=== PATIENT | male | born 1950 | race Asian ===

== ENCOUNTER 2025-04-26 10:10 | Day surgery (SDC) | payer OTHER, SELFPAY ==
[2025-04-19 11:05] LABS: Hematocrit 42.5 % (39.0-52.0); Hemoglobin 14.4 g/dL (13.0-18.0); Mean Corp Hgb Conc. 33.9 g/dL (33.0-37.0); Mean Corpuscular Volume 93.6 fL (80.0-94.0); Nucleated Red Blood Cells % 0 % (-); Platelet Count 195 10^3/uL (130-400); Red Cell Dist. Width 13.5 % (11.5-14.5)
[2025-04-19 11:49] LABS: ALT (SGPT) 24 U/L (0-50); AST (SGOT) 23 U/L (17-59); Albumin 4.5 g/dl (3.5-5.0); Alkaline Phosphatase 89 U/L (38-126); Blood Urea Nitrogen 24 mg/dl (9-20); Calcium 9.2 mg/dl (8.4-10.2); Carbon Dioxide 27 mmol/L (22-30); Chloride 108 mmol/L (98-107); Glucose 101 mg/dl (70-99); Magnesium 2.2 mg/dl (1.6-2.3); Potassium 4.2 mmol/L (3.5-5.1); Sodium 143 mmol/L (135-145); Total Protein 7.5 g/dl (6.3-8.2); eGFR > 60.00
[2025-04-19 13:35] VITALS: BMI 28.3
[2025-04-26 10:42] VITALS: BMI 27.5
[2025-04-26 10:57] VITALS: BP 174/74
[2025-04-26 11:11] VITALS: BP 165/84
--- NOTE | 2025-04-26 12:22 | W.PN.UPDATE ---
Update Note
Progress Note Update
The patient ate a full breakfast this morning including eggs toast yogurt and fruit at approximately 9 AM. As this is an elective implant we will offer him first available implant date on another day. I met with patient's and daughter at the
bedside. Fortunately he is asymptomatic from his bradycardia currently and over the last few weeks; he has had no syncope or presyncope. Monitor results reviewed which demonstrated transient AV block as well as chronotropic incompetence�sick sinus
syndrome. We offered implant dates this and next week although the patient's daughter is traveling to [facility] and they prefer for us to implant his device when she returns in a couple of weeks. I placed him on a relative driving restriction and he
understands to come to our emergency department if he notes any presyncope or syncope for more urgent implant. We will offer him numerous dates in early to mid April when his daughter has returned from her travels and both patient and
daughter are in agreement with plan. I did describe pacemaker implantation in detail including 1 of thousand risk of PA stroke and a 1 and 100 risk of pneumothorax tamponade infection or bleeding. He signed informed consent today.
We will confirm dates with patient and daughter today and I also reiterated that he is to remain in the n.p.o. after midnight status when he gets his pacemaker implantation.
== END 2025-04-26 12:22 | disposition home or self-care (01) ==
LOC: CATH 10:10
PROVIDERS: ATTENDING PHYSICIAN Internal Medicine Cardiovascular Disease; FAMILY PHYSICIAN Internal Medicine; OTHER PHYSICIAN Internal Medicine Cardiovascular Disease
DX: I44.2 Atrioventricular block, complete (principal); Z53.09 Procedure and treatment not carried out because of other contraindication; I10 Essential (primary) hypertension; E78.5 Hyperlipidemia, unspecified; K21.9 Gastro-esophageal reflux disease without esophagitis; E55.9 Vitamin D deficiency, unspecified; N40.0 Benign prostatic hyperplasia without lower urinary tract symptoms; R73.03 Prediabetes; Z86.19 Personal history of other infectious and parasitic diseases; I45.10 Unspecified right bundle-branch block; Z87.891 Personal history of nicotine dependence; R91.8 Other nonspecific abnormal finding of lung field
CPT/HCPCS: 93005; 36415; 80053; 83735; 85025

== ENCOUNTER 2025-05-13 10:47 | Day surgery (SDC) | payer OTHER, SELFPAY ==
[2025-05-13] VITALS (11 sets, daily range): BP systolic 117–186; BP diastolic 65–86; BMI 26.9
[2025-05-13] MEDS: BENADRYL 50 MG IV (11:36)
[2025-05-13] MEDS: SOLU-CORTEF 200 MG IV (11:50)
--- NOTE | 2025-05-13 13:31 | ITS.CL.PACE ---
[employer] - Pacemaker Implant
Pacemaker Implant
Procedure Report:
Date of Procedure: May 13, 2025
Patient : [id number]
Procedure: Pacemaker Implantation.
Indication: Symptomatic sick sinus syndrome as well as periods of paroxysmal complete heart block on outpatient ambulatory monitor
Implants:
Pulse Generator: Medtronic; Model# W1 DR 01; SN: [id number]
RA Lead: Medtronic; Model# 4574; SN: [id number]
RV Lead: Medtronic; Model# 4074; SN: [id number]
Technique: A time out was performed. The procedure site was identified. The patient was anesthetized by the anesthesia service. Preoperative sedation was administered. The patient was prepped and draped in the usual fashion. Local anesthetic was
applied to the left prepectoral subcutaneous tissue. A 3 inch incision was made 2.5 inches below the left clavicle. A subcutaneous pocket was created with blunt and sharp dissection and hemostasis controlled with Bovie cautery. The left axillary
vein was accessed within the pocket without difficulty. Hemostasis was excellent. The leads were introduced with 7 Fr hemostatic peel away introducer sheaths. The ventricular lead was placed at the right ventricular apex. The atrial lead was placed
in the right atrial appendage. 10 volt pacing did not capture the diaphragm. The leads were secured to the pectoralis muscle and fascia. The leads were appropriately attached to the device. The pocket was irrigated with antibiotic solution. The
device and leads were placed in the pocket. The incision was closed in three layers with absorbable suture. The estimated blood loss was minimal. There were no complications.��
Lead Analysis:
RA lead: P: 1.8 mV; Threshold: 0.75 V @ 0.5��ms; Impedance: 551 ohms.
RV lead: R: 5.0 mV; Threshold: 0.875 V @ 0.5��ms; Impedance: 1577 ohms.
Final Programming: AAIR�DDDR 50 bpm to 130 bpm paced AV interval 180 ms
�
Conclusion: Uncomplicated Medtronic pacemaker implant.
Recommendation: Routine post pacemaker care.
[2025-05-13] MEDS: ANCEF 5 IV (15:55)
--- NOTE | 2025-05-13 16:07 | W.PN.UPDATE ---
Update Note
Progress Note Update
Reviewed the patient's chest x-ray which demonstrated no pneumothorax and stable right atrial and right ventricular lead position. ECG demonstrates atrial pacing. He has demonstrated clinical stability throughout the afternoon and will plan for
discharge later this afternoon.
--- NOTE | 2025-05-13 16:09 | W.PN.UPDATE ---
Update Note
Progress Note Update
74 yo male s/p PPM (Same day). He denies cp, sob, inc pain, kimi diet, voiding, EKG Atrial paced, CXR no PTX, leads in position. Activity restrictions reviewed. He will have incision check appointment in 1 week. He is for d/c home after 4pm and abx
given.
== END 2025-05-13 14:05 | disposition home or self-care (01) ==
LOC: CATH 10:47
PROVIDERS: ATTENDING PHYSICIAN Internal Medicine Cardiovascular Disease; FAMILY PHYSICIAN Internal Medicine; OTHER PHYSICIAN Internal Medicine Cardiovascular Disease
DX: I44.2 Atrioventricular block, complete (principal); I49.5 Sick sinus syndrome; K21.9 Gastro-esophageal reflux disease without esophagitis; I10 Essential (primary) hypertension; R73.03 Prediabetes
CPT/HCPCS: 33208; 71045; 93005; C1785; C1898; Q9967